=== PATIENT | male | born 1970 | race Two or more races ===

== ENCOUNTER 2023-09-12 15:52 | Observation (INO) | payer BC ==
--- NOTE | 2023-09-12 16:21 | ED ---
General Adult HPI - General Source: patient, RN notes reviewed Mode of arrival: ambulatory Limitations: no limitations <Jennifer Lopez - Last Filed: 09/12/23 16:18> <Wade Ceja - Last Filed: 09/13/23 01:49> - General Stated complaint: high blood pressure Time Seen by Provider: 09/12/23 16:18 - History of Present Illness Initial comments: Male presents to the emergency department for evaluation of elevated blood pressure. He states that he went to [facility] today his blood pressure which was 211/120. He states that last week went to his primary care provider and was started on multiple blood pressure medications. After starting his new medications, he reports that he started developing episodes of chest comfort and palpitations. The pain radiates down his left arm when it comes on. He states that prior to starting his new medications he had never experienced this. (Jennifer Lopez) 53-year-old male presenting with chief complaint of elevated blood pressure and chest pain. 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 Patient was at [facility] today and checked his blood pressure which was 211/120. Last week he was seen by his PCP and started on multiple blood pressure medications. Patient stopped taking these medications though stating that he was developing chest pain nausea and dizziness after taking them. Patient states that this afternoon he started having pressure-like chest pain with radiation to the left arm. Pain has been intermittent. At the time of my evaluation he states that the pain is resolved. No shortness of breath. No vomiting. No fever, cough, congestion, sore throat, abdominal pain. No lower extremity swelling. (Wade Ceja) - Related Data Allergies Allergy/AdvReac Type Severity Reaction Status Date / Time No Known Allergies Allergy Verified 09/12/23 18:05 Review of Systems ROS Other: All systems not noted in ROS Statement are negative. <Jennifer Lopez - Last Filed: 09/12/23 16:18> ROS Other: All systems not noted in ROS Statement are negative. <Wade Ceja - Last Filed: 09/13/23 01:49> ROS Statement: Those systems with pertinent positive or pertinent negative responses have been documented in the HPI. General Exam <Jennifer Lopez - Last Filed: 09/12/23 16:18> Limitations: language barrier (Patient speaks Prydeinig but prefers to speak Arabic, he is using his son as an boat worker) General appearance: alert, in no apparent distress Head exam: Present: atraumatic, normocephalic Eye exam: Present: normal appearance, EOMI Neck exam: Present: normal inspection Respiratory exam: Present: normal lung sounds bilaterally. Absent: respiratory distress, wheezes, rales, rhonchi, stridor Cardiovascular Exam: Present: regular rate, normal rhythm, normal heart sounds. Absent: systolic murmur, diastolic murmur, rubs, gallop, clicks Extremities exam: Absent: pedal edema Neurological exam: Present: alert, oriented X3 Psychiatric exam: Present: normal affect, normal mood Skin exam: Present: warm, dry <Wade Ceja - Last Filed: 09/13/23 01:49> - General Exam Comments Initial Comments: Visual Physical Exam Vital signs reviewed General: Well-appearing, nontoxic, no acute distress. Head: Normocephalic, atraumatic Eyes: PERRLA, EOMI ENT: Airway patent Chest: Nonlabored breathing Skin: No visual rash, normal skin tone Neuro: Alert and oriented 3 Musculoskeletal: No gross abnormalities (Jennifer Lopez) Course Vital Signs 09/12/23 09/13/23 09/13/23 18:00 00:16 00:57 Temperature 98.3 F 98.1 F Pulse Rate 74 69 60 Respiratory 18 18 18 Rate Blood Pressure 183/86 158/104 158/96 O2 Sat by Pulse 96 96 96 Oximetry Medical Decision Making <Jennifer Lopez - Last Filed: 09/12/23 16:18> - Lab Data Result diagrams: 09/12/23 17:08 09/12/23 17:08 <Wade Ceja - Last Filed: 09/13/23 01:49> - Medical Decision Making Quick note preformed by Jennifer Lopez PA-C (Jennifer Lopez) Sinus rhythm ventricular rate 63. OH interval 166. QRS 108. QT 393. QTc 401. Normal axis. No ST deviation or T wave inversion. Was pt. sent in by a medical professional or institution (, JERROD, RIPENING ROOM OPERATOR, urgent care, hospital, or group home...) When possible be specific @ -No Did you speak to anyone other than the patient for history (EMS, parent, family, police, friend...)? What history was obtained from this source @ -Patient uses his son as an boat worker, his first language is Arabic Did you review nursing and triage notes (agree or disagree)? Why? @ -I reviewed and agree with nursing and triage notes Were old charts reviewed (outside hosp., previous admission, EMS record, old EKG, old radiological studies, urgent care reports/EKG's, group home records)? Report findings @ -No old charts were reviewed Differential Diagnosis (chest pain, altered mental status, abdominal pain women, abdominal pain men, vaginal bleeding, weakness, fever, dyspnea, syncope, headache, dizziness, GI bleed, back pain, seizure, CVA, palpatations, mental health, musculoskeletal)? @ -MDM Differential Chest Pain: Stable Angina, Unstable Angina, STEMI, NSTEMI Aortic Dissection, Pneumothorax, Musculoskeletal, Esophageal Spasm GERD, Cholecystitis, Pancreatitis, Zo ster This is not meant to be an all-inclusive list. EKG interpreted by me (3pts min.). @ -As above X-rays interpreted by me (1pt min.). @ -Chest x-ray shows no acute process CT interpreted by me (1pt min.). @ -None done U/S interpreted by me (1pt. min.). @ -None done What testing was considered but not performed or refused? (CT, X-rays, U/S, labs)? Why? @ -None What meds were considered but not given or refused? Why? @ -None Did you discuss the management of the patient with other professionals (professionals i.e. , PA, RIPENING ROOM OPERATOR, lab, RT, psych nurse, social media developer, real estate sales associate, teacher, security officer supervisor, employment evaluator/case manager)? Give summary @ -I spoke with Dr. Hardin who accepted admission Was smoking cessation discussed for >3mins.? @ -No Was critical care preformed (if so, how long)? @ -No Were there social determinants of health that impacted care today? How? (Homelessness, low income, unemployed, alcoholism, drug addiction, transportation, low edu. Level, literacy, decrease access to med. care, senior care, rehab)? @ -No Was there de-escalation of care discussed even if they declined (Discuss DNR or withdrawal of care, Hospice)? DNR status @ -No What co-morbidities impacted this encounter? (DM, HTN, Smoking, COPD, CAD, Cancer, CVA, ARF, Chemo, Hep., AIDS, mental health diagnosis, sleep apnea, morbid obesity)? @ -Hypertension, hyperlipidemia, BMI greater than 30 Was patient admitted / discharged? Hospital course, mention meds given and route, prescriptions, significant lab abnormalities, going to OR and other pertinent info. @ -53-year-old male presenting with chief complaint of chest pain. Pressure- like pain with radiation to the left arm. Symptoms started this afternoon. Pain has been intermittent, no pain currently. His workup was initiated by triage. patient has negative troponin x 2. Chest x-ray shows no acute process and EKG shows no ischemic changes. History and physical exam were conducted. Patient is hypertensive, he has not been taking his antihypertensives. He is given his prescribed home meds which includes hydralazine 10 mg and losartan 100 mg. heart score 4. Patient will be admitted for observation. He is agreeable with this plan. I discussed this case with my attending Dr. Martino Undiagnosed new problem with uncertain prognosis? @ -No Drug Therapy requiring intensive monitoring for toxicity (Heparin, Nitro, Insulin, Cardizem)? @ -No Were any procedures done? @ -No Diagnosis/symptom? @ -Chest pain Acute, or Chronic, or Acute on Chronic? @ -Acute Uncomplicated (without systemic symptoms) or Complicated (systemic symptoms)? @ -Complicated Side effects of treatment? @ -No Exacerbation, Progression, or Severe Exacerbation? @ -No Poses a threat to life or bodily function? How? (Chest pain, USA, HI, pneumonia, PE, COPD, DKA, ARF, appy, cholecystitis, CVA, Diverticulitis, Homicidal, Suicidal, threat to staff... and all critical care pts) @ -Yes (Wade Ceja) - Lab Data Lab Results 09/12/23 09/12/23 09/12/23 Range/Units 17:08 17:08 17:08 WBC 7.1 (3.8-10.6) k/uL RBC 5.14 (4.30-5.90) m/uL Hgb 15.1 (13.0-17.5) gm/dL Hct 44.2 (39.0-53.0) % MCV 86.0 (80.0-100.0) fL MCH 29.5 (25.0-35.0) pg MCHC 34.3 (31.0-37.0) g/dL RDW 12.7 (11.5-15.5) % Plt Count 287 (150-450) k/uL MPV 7.2 Neutrophils % 67 % Lymphocytes % 23 % Monocytes % 7 % Eosinophils % 1 % Basophils % 1 % Neutrophils # 4.7 (1.3-7.7) k/uL Lymphocytes # 1.7 (1.0-4.8) k/uL Monocytes # 0.5 (0-1.0) k/uL Eosinophils # 0.1 (0-0.7) k/uL Basophils # 0.0 (0-0.2) k/uL PT 11.1 (10.0-12.5) sec INR 1.0 (<1.2) APTT 25.5 (22.0-30.0) sec Sodium 137 (137-145) mmol/L Potassium 4.0 (3.5-5.1) mmol/L Chloride 97 L (98-107) mmol/L Carbon Dioxide 33 H (22-30) mmol/L Anion Gap 7 mmol/L BUN 13 (9-20) mg/dL Creatinine 0.62 L (0.66-1.25) mg/dL Est GFR (CKD-EPI)AfAm >90 (>60 ml/min/1.73 sqM) Est GFR (CKD-EPI)NonAf >90 (>60 ml/min/1.73 sqM) Glucose 154 H (74-99) mg/dL Calcium 9.6 (8.4-10.2) mg/dL Magnesium 1.9 (1.6-2.3) mg/dL Total Bilirubin 0.6 (0.2-1.3) mg/dL AST 36 (17-59) U/L ALT 46 (4-49) U/L Alkaline Phosphatase 178 H (38-126) U/L Troponin I (0.000-0.034) ng/mL Total Protein 8.4 H (6.3-8.2) g/dL Albumin 4.7 (3.5-5.0) g/dL 09/12/23 09/12/23 Range/Units 17:08 21:13 WBC (3.8-10.6) k/uL RBC (4.30-5.90) m/uL Hgb (13.0-17.5) gm/dL Hct (39.0-53.0) % MCV (80.0-100.0) fL MCH (25.0-35.0) pg MCHC (31.0-37.0) g/dL RDW (11.5-15.5) % Plt Count (150-450) k/uL MPV Neutrophils % % Lymphocytes % % Monocytes % % Eosinophils % % Basophils % % Neutrophils # (1.3-7.7) k/uL Lymphocytes # (1.0-4.8) k/uL Monocytes # (0-1.0) k/uL Eosinophils # (0-0.7) k/uL Basophils # (0-0.2) k/uL PT (10.0-12.5) sec INR (<1.2) APTT (22.0-30.0) sec Sodium (137-145) mmol/L Potassium (3.5-5.1) mmol/L Chloride (98-107) mmol/L Carbon Dioxide (22-30) mmol/L Anion Gap mmol/L BUN (9-20) mg/dL Creatinine (0.66-1.25) mg/dL Est GFR (CKD-EPI)AfAm (>60 ml/min/1.73 sqM) Est GFR (CKD-EPI)NonAf (>60 ml/min/1.73 sqM) Glucose (74-99) mg/dL Calcium (8.4-10.2) mg/dL Magnesium (1.6-2.3) mg/dL Total Bilirubin (0.2-1.3) mg/dL AST (17-59) U/L ALT (4-49) U/L Alkaline Phosphatase (38-126) U/L Troponin I <0.012 <0.012 (0.000-0.034) ng/mL Total Protein (6.3-8.2) g/dL Albumin (3.5-5.0) g/dL Disposition <Jennifer Lopez - Last Filed: 09/12/23 16:18> Time of Disposition: 23:46 <Wade Ceja - Last Filed: 09/13/23 01:49> Clinical Impression: Chest pain Disposition: ADMITTED IP TO THIS HOSP Condition: Fair
--- NOTE | 2023-09-12 16:51 | XR ---
EXAMINATION TYPE: XR chest 2V DATE OF EXAM: 09/12/2023 4:47 PM CLINICAL INDICATION:Male, 53 years old with history of Chest Pain; [facility] COMPARISON: None TECHNIQUE: XR chest 2V Frontal and lateral views of the chest. FINDINGS: Lungs/Pleura: There is no evidence of pleural effusion, focal consolidation, or pneumothorax. Pulmonary vascularity: Unremarkable. Heart/mediastinum: Cardiomediastinal silhouette is unremarkable. Musculoskeletal: No acute osseous pathology. IMPRESSION: No acute cardiopulmonary disease/process.
[2023-09-12 17:32] LABS: Basophils % (A) 1 %; Eosinophils # (A) 0.1 k/uL (0-0.7); Eosinophils % (A) 1 %; HCT 44.2 % (39.0-53.0); HGB 15.1 gm/dL (13.0-17.5); Lymphocytes # (A) 1.7 k/uL (1.0-4.8); Lymphocytes % (A) 23 %; MCH 29.5 pg (25.0-35.0); MCHC 34.3 g/dL (31.0-37.0); Mean Platelet Volume 7.2; Monocytes # (A) 0.5 k/uL (0-1.0); Monocytes % (A) 7 %; Neutrophils # (A) 4.7 k/uL (1.3-7.7); Neutrophils % (A) 67 %; Platelet Count 287 k/uL (150-450); RBC 5.14 m/uL (4.30-5.90); RDW 12.7 % (11.5-15.5); WBC 7.1 k/uL (3.8-10.6)
[2023-09-12 17:42] LABS: ALT 46 U/L (4-49); AST 36 U/L (17-59); African American GFR (CKD) >90 (>60 ml/min/1.73 sqM); Albumin 4.7 g/dL (3.5-5.0); Alkaline Phosphatase 178 U/L (38-126); Anion Gap 7 mmol/L; Blood Urea Nitrogen 13 mg/dL (9-20); Calcium 9.6 mg/dL (8.4-10.2); Carbon Dioxide 33 mmol/L (22-30); Chloride 97 mmol/L (98-107); Glucose 154 mg/dL (74-99); Magnesium 1.9 mg/dL (1.6-2.3); Non-African American GFR(CKD) >90 (>60 ml/min/1.73 sqM); Sodium 137 mmol/L (137-145); Total Bilirubin 0.6 mg/dL (0.2-1.3); Total Protein 8.4 g/dL (6.3-8.2)
[2023-09-12 17:50] LABS: Partial Thromboplastin Time 25.5 sec (22.0-30.0); Prothrombin Time 11.1 sec (10.0-12.5)
[2023-09-12] MEDS ORDERED: LOSARTAN 50 MG TAB PO STA (23:35)
[2023-09-12] MEDS ORDERED: hydrALAZINE HCL 10 MG TAB PO STA (23:35)
[2023-09-12] MEDS ORDERED: ACETAMINOPHEN TAB 325 MG TAB PO PRN (23:44)
[2023-09-12] MEDS ORDERED: NALOXONE 0.4 MG/ML 1 ML VIAL IV PRN (23:44)
[2023-09-12] MEDS ORDERED: ASPIRIN 81 MG PO STA (23:44)
[2023-09-13] MEDS ORDERED: hydrALAZINE HCL 25 MG TAB PO STA (08:08)
[2023-09-13] MEDS: ASPIRIN 81 MG PO SCH (08:44)
[2023-09-13] MEDS ORDERED: LOSARTAN 50 MG TAB PO SCH (09:00)
[2023-09-13] MEDS: CHLORTHALIDONE 25 MG TAB PO SCH (09:09)
--- NOTE | 2023-09-13 10:12 | P.CRDCN ---
History of Present Illness History of present illness: HISTORY OF PRESENT ILLNESS: This is a 53-year-old male with a past medical history significant for hypertension and diabetes. Patient does not follow with a filter helper. We have been asked to see the patient in consultation for chest pain. Patient examined at the bedside. Patient is able to understand and speak some Thai. However there is somewhat of a language barrier present. Patient's family is at the bedside and assisting in translating. The patient recently went to his primary care physician and was diagnosed with hypertension. Patient was started on losartan and chlorthalidone. He was also started on oral diabetic medications. Over the past week, the patient has been feeling unwell. He reports shortness of breath, chest discomfort, pain and tingling in his arms and lips, and a headache. Due to the symptoms, the patient stopped taking his medications that were recently prescribed. He apparently was at [facility] and took his blood pressure and the systolic read at 211 which prompted him to come to the emergency room for further evaluation. DIAGNOSTICS: - EKG reveals sinus mechanism with no signs of acute ischemia. - Chest xray negative for acute process. - Laboratory data: WBC 7.1. Hemoglobin 15.1. Platelet count 287. Sodium 137. Potassium 4.0. BUN 13. Creatinine 0.62. Magnesium 1.9. Troponin negative x 4. - Current home cardiac medications include losartan 100 mg daily and chlorthalidone 25 mg daily -No previous echocardiogram or cardiac catheterization available in EMR for review REVIEW OF SYSTEMS: At the time of my exam: CONSTITUTIONAL: Denies fever or chills. HEENT: Denies blurred vision, vision changes, or eye pain. Denies hemoptysis CARDIOVASCULAR: Denies chest pain. Denies orthopnea. Denies PND. Denies palpitations RESPIRATORY: Denies shortness of breath. GASTROINTESTINAL: Denies abdominal pain. Denies nausea or vomiting. HEMATOLOGIC: Denies bleeding disorders. GENITOURINARY: Denies any blood in urine. SKIN: Denies pruitis. Denies rash. PHYSICAL EXAM: VITAL SIGNS: Reviewed. GENERAL: Well-developed in no acute distress. HEENT: Head is normocephalic. Pupils are equal, round. Sclerae anicteric. Mucous membranes of the mouth are moist. Neck supple. No JVD or thyromegaly LUNGS: Respirations even and unlabored. Lungs essentially clear to auscultation bilaterally. HEART: Regular rate and rhythm. S1 and S2 heard. ABDOMEN: Soft. Nondistended. Nontender. EXTREMITIES: Normal range of motion. No clubbing or cyanosis. Peripheral pulses intact. No lower extremity edema NEUROLOGIC: Awake and alert. Oriented x 3. ASSESSMENT: Atypical chest pain, troponin negative x 4 Hypertensive urgency Recent diagnosis of hypertension Diabetes Medication noncompliance PLAN: An acute coronary event has been ruled out Obtain 2D echo to assess cardiac structure and function Begin aspirin 81 mg daily and Lipitor 40 mg at night Continue losartan 100 mg daily and chlorthalidone 25 mg daily Obtain lipid panel Continue to monitor blood pressure Continue telemetry monitoring Patient to undergo stress echocardiogram today If negative, he may be discharged home today from a cardiac standpoint Patient to follow-up in the office with Dr. Mehta in 1 week Nurse practitioner note has been reviewed by physician. Signing provider agrees with the documented findings, assessment, and plan of care documented by PAINT ROLLER WINDER as a scribe. Past Medical History Past Medical History: Hyperlipidemia, Hypertension History of Any Multi-Drug Resistant Organisms: None Reported Past Surgical History: No Surgical Hx Reported Past Psychological History: No Psychological Hx Reported Smoking Status: Never smoker Past Alcohol Use History: None Reported Past Drug Use History: None Reported Medications and Allergies Allergies Allergy/AdvReac Type Severity Reaction Status Date / Time No Known Allergies Allergy Verified 09/12/23 18:05 Physical Exam Vitals: Vital Signs Temp Pulse Pulse Resp BP BP Pulse Ox 09/13/23 07:00 97.4 F L 71 16 154/92 95 09/13/23 02:00 60 09/13/23 01:16 97.5 F L 63 16 169/87 95 09/13/23 00:57 98.1 F 60 18 158/96 96 09/13/23 00:16 69 18 158/104 96 09/12/23 18:00 98.3 F 74 18 183/86 96 Intake and Output 09/12/23 09/13/23 09/13/23 22:59 06:59 14:59 Other: Voiding Method Toilet Weight 101.605 kg 101.605 kg Results 09/12/23 17:08 09/12/23 17:08 Cardiac Enzymes 09/12/23 09/12/23 09/12/23 Range/Units 17:08 17:08 21:13 AST 36 (17-59) U/L Troponin I <0.012 <0.012 (0.000-0.034) ng/mL 09/13/23 09/13/23 Range/Units 00:55 03:14 AST (17-59) U/L Troponin I <0.012 <0.012 (0.000-0.034) ng/mL Coagulation 09/12/23 Range/Units 17:08 PT 11.1 (10.0-12.5) sec APTT 25.5 (22.0-30.0) sec CBC 09/12/23 Range/Units 17:08 WBC 7.1 (3.8-10.6) k/uL RBC 5.14 (4.30-5.90) m/uL Hgb 15.1 (13.0-17.5) gm/dL Hct 44.2 (39.0-53.0) % Plt Count 287 (150-450) k/uL Comprehensive Metabolic Panel 09/12/23 Range/Units 17:08 Sodium 137 (137-145) mmol/L Potassium 4.0 (3.5-5.1) mmol/L Chloride 97 L (98-107) mmol/L Carbon Dioxide 33 H (22-30) mmol/L BUN 13 (9-20) mg/dL Creatinine 0.62 L (0.66-1.25) mg/dL Glucose 154 H (74-99) mg/dL Calcium 9.6 (8.4-10.2) mg/dL AST 36 (17-59) U/L ALT 46 (4-49) U/L Alkaline Phosphatase 178 H (38-126) U/L Total Protein 8.4 H (6.3-8.2) g/dL Albumin 4.7 (3.5-5.0) g/dL Current Medications Generic Name Dose Route Start Last Admin Trade Name Freq PRN Reason Stop Dose Admin Acetaminophen 650 mg 09/12/23 23:44 Acetaminophen Tab 325 Mg Tab PO Q6HR PRN Mild Pain or Fever > 100.5 Naloxone HCl 0.2 mg 09/12/23 23:44 Naloxone 0.4 Mg/Ml 1 Ml Vial IV Q2M PRN Opioid Reversal Intake and Output 09/12/23 09/13/23 09/13/23 22:59 06:59 14:59 Other: Voiding Method Toilet Weight 101.605 kg 101.605 kg 09/12/23 17:08 09/12/23 17:08
--- NOTE | 2023-09-13 11:46 | CA ---
Transthoracic Echo Report Name: Cali Barrera Age: 53 Gender: M : 1970 Exam Date: 09/13/2023 10:01 Exam Location: [place] [facility] Ht (in): 66 Wt (lb): 224 Ordering Physician: Kasandra Garibay Attending/Referring Phys: [id number], [place] [facility] Ophthalmologist Tayla Riley RDCS Procedure CPT: Indications: CP, LV function Cardiac Hx: Technical Quality: Fair Contrast 1: Total Dose (mL): Contrast 2: Total Dose (mL): MEASUREMENTS (Male / Female) Normal Values 2D ECHO LV Diastolic Diameter PLAX 4.9 cm 4.2 - 5.9 / 3.9 - 5.3 cm LV Systolic Diameter PLAX 3.2 cm IVS Diastolic Thickness 1.0 cm 0.6 - 1.0 / 0.6 - 0.9 cm LVPW Diastolic Thickness 1.1 cm 0.6 - 1.0 / 0.6 - 0.9 cm LV Relative Wall Thickness 0.4 RV Internal Dim ED PLAX 3.3 cm LA Systolic Diameter LX 3.6 cm 3.0 - 4.0 / 2.7 - 3.8 cm LV Diastolic Volume MOD 4C 126.3 cm??? LV Systolic Volume MOD 4C 50.5 cm??? LV Ejection Fraction MOD 4C 60.0 % LV Cardiac Index MOD 4C 2527.6 cm???/min???m??? LV Diastolic Length 4C 8.9 cm LV Systolic Length 4C 7.2 cm LV Diastolic Volume MOD 2C 109.4 cm??? LV Systolic Volume MOD 2C 55.4 cm??? LV Ejection Fraction MOD 2C 49.4 % LV Cardiac Index MOD 2C 1801.4 cm???/min???m??? LV Diastolic Length 2C 8.7 cm LV Systolic Length 2C 7.3 cm LA Volume 59.2 cm??? 18 - 58 / 22 - 52 cm??? LA Volume Index 26.7 cm???/m??? 16 - 28 cm???/m??? M-MODE Aortic Root Diameter MM 3.4 cm MV E Point Septal Separation 0.7 cm AV Cusp Separation MM 2.3 cm DOPPLER AV Peak Velocity 128.4 cm/s AV Peak Gradient 6.6 mmHg MV Area PHT 4.2 cm??? Mitral E Point Velocity 70.1 cm/s Mitral A Point Velocity 60.2 cm/s Mitral E to A Ratio 1.2 MV Deceleration Time 182.1 ms MV E' Velocity 5.4 cm/s Mitral E to MV E' Ratio 12.9 FINDINGS Left Ventricle Left ventricular ejection fraction is estimated at 55-60 %. Left ventricular cavity size normal. Left ventricular wall thickness is mildly increased. No obvious regional wall motion abnormalities. Right Ventricle Normal right ventricular size. Unable to estimate the right ventricular systolic pressure. Right Atrium Normal right atrial size. Left Atrium Mildly increased left atrial volume. Mitral Valve Structurally normal mitral valve. No mitral stenosis, regurgitation or prolapse. Aortic Valve Trileaflet aortic valve. No aortic valve stenosis or regurgitation. Tricuspid Valve Structurally normal tricuspid valve. No tricuspid stenosis, regurgitation or prolapse. Pulmonic Valve Structurally normal pulmonic valve. No pulmonic regurgitation. Pericardium No pericardial effusion. Aorta Normal size aortic root and proximal ascending aorta. CONCLUSIONS Left ventricular ejection fraction is estimated at 55-60 %. No obvious regional wall motion abnormalities. Mild concentric LVH No significant valvular dysfunction No pericardial effusion No significant chamber size abnormality Previewed by: Dr Manjit Mehta (Electronically Signed) Final Date: 13 September 2023 11:45
--- NOTE | 2023-09-13 12:42 | CA ---
Stress Echo Report Cali Barrera Age: 53 Gender: M : 1970 Exam Date: 09/13/2023 11:10 Exam Location: [place] [facility] Ht (in): 66 Wt (lb): 224 Ordering Physician: Kasandra Garibay Referring Physician: [id number] [facility] I Farmworker: [email or web address], Technologist Procedure CPT: Indication: CP ICD-9 Codes: Rhythm: Patient History: Chest pain, shortness of breath, hypertension, diabetes and history of stroke. Cardiac Medications: Medications in past 24 hours: Contrast: Stress Results Protocol: Octavio Total dose(mL): Exercise Duration (min:sec): Max ST Depression (mm): Angina Score: Gonzalez Score: METS: 8.9 Resting HR: 73 Resting BP: 190 / 98 Peak HR: 146 Peak BP: 195 / 79 Max Predicted HR: 167 87 % Max Predicted HR Target HR: 142 Double Product: [id number] Stress Summary: BP Response: Reason for Termination: MAX EXERTION/TARGET HR Cardiac Symptoms: NO SYMPTOMS ECG Analysis Resting ECG: Normal sinus rhythm, normal ECG Stress ECG: No significant ST-T wave changes diagnostic for ischemia by ST segment analysis Arrhythmia: no arrhythmias or ectopic beats Echo Analysis Resting Echo: Normal global and segmental systolic function. No obvious regional wall motion abnormality Peak Echo Analysis: Normal augmentation of global and segmental systolic function. No stress-induced regional wall motion abnormality MEASUREMENTS (Male/Female) Normal Values CONCLUSIONS Fair excess tolerance for age achieving 8.9 mets Nonischemic ECG response to exercise Nonischemic echocardiographic response to exercise Hypertensive at baseline. Normal clinical response to exercise Overall normal treadmill echo stress test Dr Manjit Mehta (Electronically Signed) Final Date: 13 September 2023 12:42
[2023-09-13 15:30] LABS: Chol/HDL Ratio 5.48 Ratio; LDL Cholesterol,Calculated 143.8 mg/dL (0.0-131.0)
--- NOTE | 2023-09-13 19:25 | DS ---
DISCHARGE SUMMARY CHIEF COMPLAINT: Chest pain. HISTORY OF PRESENT ILLNESS AND PHYSICAL EXAMINATION: Details of this man's history and physical can be found in the initial workup. LABORATORY STUDIES: While he is in a hospital he had laboratory studies, details of which can be found in the laboratory section of his chart. COURSE IN THE HOSPITAL: After admission, he was placed on bedrest, started on intravenous fluids and had serial EKGs and enzymes which were normal. He was seen by Cardiology and it was felt he could be discharged home on the . He will be followed up in the office. FINAL DIAGNOSES: 1. Chest pain, noncardiac. 2. Hypertension. OPERATIONS: None. CONSULTATIONS: Cardiology, he is improved. MMODL / IJN: [id number] /
--- NOTE | 2023-09-13 19:40 | HP ---
HISTORY AND PHYSICAL CHIEF COMPLAINT: Chest pain. HISTORY OF PRESENT ILLNESS: This is first known admission for this 53-year-old Latin male. He woke up in the middle of the night with chest pain, and came to the emergency room. The pain was described as a pressure-like sensation in the anterior chest with no radiculopathy. He did feel short of breath. He had no diaphoresis, nausea, vomiting, etc. EKG and enzymes were normal. Past medical history, family history, personal and social histories reveal that he is allergic to metformin. He is type 2 diabetic with hypertension. MEDICATIONS: He is on, 1. Losartan 100 mg once a day. 2. Glimepiride 1 mg twice a day. 3. Eyedrops for glaucoma. 4. Ibuprofen. 5. Vitamin D. 6. Suboxone 8/2 three times a day. SOCIAL HISTORY: He has never smoked. PHYSICAL EXAMINATION: VITAL SIGNS: Normal. HEAD, EARS, EYES, NOSE, MOUTH AND THROAT: Normal. CHEST: Clear. CARDIAC: Normal sinus rhythm and there are no murmurs or extra sounds. ABDOMEN: Soft, nontender and slightly protuberant. EXTREMITIES: Normal. NEUROLOGIC: He is intact. ASSESSMENT: He is admitted to the hospital with diagnoses of: 1. Chest pain. 2. Type 2 diabetes. PLAN: 1. Bed rest. 2. IV fluids. 3. Serial EKGs and enzymes. 4. Cardiology consult. HALEIGH / SARAH: [id number] /
[2023-09-13] MEDS ORDERED: ATORVASTATIN 40 MG TAB PO SCH (21:00)
[2023-09-14 03:50] VITALS: RESP 16
[2023-09-14 08:42] VITALS: BP 154/88; PULSE 72; TEMP 97.6
[2023-09-14] MEDS ORDERED: LOSARTAN 50 MG TAB PO SCH (09:00)
[2023-09-14] MEDS ORDERED: amLODIPine 5 MG TAB PO SCH (09:00)
[2023-09-14] MEDS: ASPIRIN 81 MG PO SCH (09:10)
[2023-09-14] MEDS: CHLORTHALIDONE 25 MG TAB PO SCH (09:10)
--- NOTE | 2023-09-17 07:37 | DS ---
DISCHARGE SUMMARY CHIEF COMPLAINT: Chest pain. HISTORY OF PRESENT ILLNESS AND PHYSICAL EXAM: Details of this man's history and physical can be found in the initial workup. LABORATORY STUDIES: While he was in the hospital, he had laboratory studies DICTATION ENDS HERE MMODL / IJN: [id number] /
== END 2023-09-14 12:17 | disposition home or self-care (01) ==
LOC: EC 15:52 → 6NMEDSUR 09-13 00:39
PROVIDERS: ADMIT Family Medicine; ATTEND Family Medicine
DX: R07.89 Other chest pain (principal); I16.0 Hypertensive urgency; I10 Essential (primary) hypertension; E11.9 Type 2 diabetes mellitus without complications; E78.5 Hyperlipidemia, unspecified; Z91.148 Patient's other noncompliance with medication regimen for other reason; Z79.84 Long term (current) use of oral hypoglycemic drugs; Z79.899 Other long term (current) drug therapy
CPT/HCPCS: 99285; 36415; 93005; 93306; 93351; 80061; 80053; 83735; 84484 ×2; 85025; 85610; 85730; 71046; G0378 ×2

== ENCOUNTER → 2024-11-27 | Outpatient (CLI) | payer BC ==
[2024-11-27 10:19] LABS: HCT 43.7 % (39.6-50.0); HGB 14.4 g/dL (13.0-17.0); MCH 28.9 pg (27.0-32.0); MCV 87.6 FL (80.0-97.0); Mean Platelet Volume 9.9 FL (9.5-12.2); NRBC Per 100 WBC 0 X 10*3/uL (0.00-0.01); Platelet Count 299 X 10*3/uL (140-440); RBC 4.99 X 10*6/uL (4.40-5.60); RDW 12.5 % (11.5-14.5); WBC 7.39 X 10*3/uL (4.50-10.00)
[2024-11-27 10:36] LABS: Blood Urea Nitrogen 19.2 mg/dL (9.0-27.0); Carbon Dioxide 28.3 mmol/L (21.6-31.8); Chloride 102 mmol/L (96-109); Chol/HDL Ratio 3.24 Ratio; Glucose 124 mg/dL (70-110); LDL Cholesterol,Calculated 27.7 mg/dL (0.0-131.0); Potassium 3.6 mmol/L (3.5-5.5); Sodium 140 mmol/L (135-145)
[2024-11-27 10:37] LABS: ALT 32 U/L (10-49); AST 16 U/L (14-35); Albumin 4.5 g/dL (3.8-4.9); Albumin/Globulin Ratio 1.61 Ratio (1.60-3.17); Alkaline Phosphatase 160 U/L (41-126); Calcium 9.4 mg/dL (8.7-10.3); Globulin 2.8 g/dL (1.6-3.3); Total Bilirubin 0.3 mg/dL (0.3-1.2); Total Protein 7.3 g/dL (6.2-8.2)
[2024-11-27 11:45] LABS: NT-Pro-B-Type Natriuretic Pept <36 pg/mL (0-125)
== END | disposition home or self-care (01) ==
LOC: LABWHC1 07:33
PROVIDERS: ATTEND Student in an Organized Health Care Education/Training Program
DX: Z13.6 Encounter for screening for cardiovascular disorders (principal); I50.9 Heart failure, unspecified; D72.9 Disorder of white blood cells, unspecified; E11.9 Type 2 diabetes mellitus without complications; E78.5 Hyperlipidemia, unspecified; E03.9 Hypothyroidism, unspecified; R79.89 Other specified abnormal findings of blood chemistry
CPT/HCPCS: 36415; 80053; 80061; 83036; 83880; 84443; 85027